=== PATIENT | female | born 1995 | race Caucasian/White ===

== ENCOUNTER 2018-08-22 11:17 | Observation (INO) | payer OTHER, BC ==
[~2018-08-22 11:17] MED LIST: LACTATED RINGER'S 1,000 ML IV
[2018-08-22] MEDS ORDERED: PROPOFOL 20 ML (11:40)
[2018-08-22] MEDS ORDERED: SUCCINYLCHOLINE CHLORIDE 100 MG/5 ML SYG IV (11:40)
[2018-08-22] MEDS ORDERED: MEPERIDINE 100 MG INJ (11:40)
[2018-08-22] MEDS ORDERED: ROCURONIUM 50 MG INJ (11:40)
[2018-08-22] MEDS ORDERED: NEOSTIGMINE 3 MG/3 ML SYRINGE (11:40)
[2018-08-22] MEDS ORDERED: GLYCOPYRROLATE 0.4 MG INJ (11:40)
[2018-08-22] MEDS ORDERED: LIDOCAINE 2% (SDV) 5 ML INJ (11:40)
[2018-08-22] MEDS ORDERED: CEFAZOLIN 1 GM INJ (12:41)
[2018-08-22] MEDS ORDERED: METOCLOPRAMIDE 10 MG INJ (12:41)
[2018-08-22] MEDS ORDERED: ONDANSETRON 4 MG INJ (12:41)
[2018-08-22] MEDS: CEFAZOLIN 2 GM/50 ML (PMX) 50 ML IVPB (12:57)
[2018-08-22] MEDS ORDERED: METOCLOPRAMIDE 10 MG INJ IV (13:30)
[2018-08-22] MEDS ORDERED: MEPERIDINE 25 MG INJ IV (13:30)
[2018-08-22] MEDS ORDERED: MIDAZOLAM 1 MG/ML 2 ML INJ IV (13:30)
[2018-08-22] MEDS ORDERED: OXYCODONE/ACETAMINOPHEN (5/325) TAB PO (13:30)
[2018-08-22] MEDS ORDERED: HYDROmorphONE 1 MG/5 ML IV SYRINGE IV ×3 (13:30)
[2018-08-22] MEDS ORDERED: FENTAnyl 50 MCG/ML VIAL IV ×2 (13:30)
[2018-08-22] MEDS ORDERED: ONDANSETRON 4 MG INJ IV ×2 (13:30→15:00)
[2018-08-22] MEDS: BUPIVACAINE 0.5%/EPI (SDV) 30 ML INJ (14:35)
[2018-08-22] MEDS: POLYMYXIN/BACITRACIN 1L IRRIG (14:35)
[2018-08-22] MEDS: GELATIN SIZE 100 SPONGE (14:35)
[2018-08-22] MEDS: BETAMET NA PHOS/AC(6 MG/ML) 5ML INJ (14:35)
[2018-08-22] MEDS: THROMBIN 5000 UNIT VIAL (14:35)
[2018-08-22] MEDS ORDERED: PROCHLORPERAZINE 10 MG TAB PO (15:00)
[2018-08-22] MEDS ORDERED: NALOXONE (0.4 MG/ML) INJ IV (15:00)
[2018-08-22] MEDS ORDERED: AL HYDROX/MG HYDROX/SIMETH 30 ML CUP PO (15:00)
[2018-08-22] MEDS ORDERED: NACL 0.9% 3 ML SYG IV (15:00)
[2018-08-22] MEDS ORDERED: HYDROCODONE/APAP (5/325) TAB PO ×2 (15:00)
[2018-08-22] MEDS ORDERED: ACETAMINOPHEN 325 MG TAB PO (15:00)
[2018-08-22] MEDS: DIPHENHYDRAMINE 50 MG INJ IV (15:02)
[2018-08-22] MEDS: FENTAnyl 50 MCG/ML VIAL IV ×2 (15:02→15:13)
[2018-08-22] MEDS: OXYCODONE/ACETAMINOPHEN (5/325) TAB PO (16:24)
[2018-08-23] MEDS ORDERED: DOCUSATE SODIUM 100 MG CAP PO (09:00)
== END 2018-08-22 17:30 | disposition home or self-care (01) ==
LOC: SDS 11:17 → REC 17:33 → SDS 11:17 → REC 14:38
DX: M51.17 Intervertebral disc disorders with radiculopathy, lumbosacral region (principal); M54.5 Low back pain
CPT/HCPCS: 63030; 72050; 84703; 88304; 97161; 99217